=== PATIENT | female | born 1940 | race Caucasian/White ===

== ENCOUNTER 2024-02-07 18:06 | Emergency (ER) | payer MEDICARE, SELFPAY ==
[2024-02-07 18:06] VITALS: BP 172/62; PULSE 60; RESP 17; TEMP 36.1; O2SAT 97; BMI 25.7
--- NOTE | 2024-02-07 18:52 | EDS_ITS ---
HPI History of Present Illness HPI Narrative: 83-year-old female today while just sitting outside developed left foot pain. Lasted about 2 hours she took ibuprofen and it resolved. Denies any fall injury or trauma to her left foot. No prior surgery. Also basically her immediate family and children have COVID. She has a cough. Chief Complaint: Lower Extremity Injury Occured/Mechanism Mechanism/Context: No injury and No blunt trauma Onset/Context/Timing Onset: Today and Hours Context: Gradual Onset Timing: Continuous Current Severity: Gone Maximum Severity: Mild Narrative Narrative: 83-year-old with atraumatic left foot pain. Prior similar symptoms: No Recent Illness/Hospitalization: No PFSH PFSH Medical History Acute bronchitis, unspecified Home Medications ?Medication ?Instructions ?Recorded ?Last Taken ?Type azithromycin 250 mg tablet 250 mg PO QDAY #6 tabs 06/16/23 Unknown Rx Allergy/AdvReac Type Severity Reaction Status Date / Time No Known Allergies Allergy Verified 02/07/24 18:08 Social History Smoking Status: Never smoker ROS ROS ED ROS Narrative Recent cough. Review of Systems ROS Unobtainable: Denies due to encephalopathy Constitutional Constitutional ED: Denies chills, fever(s) or subjective Eyes Eyes: Denies blurry vision ENT ENT ED: Denies ear pain Cardiovascular Cardiovascular: Denies chest pain Respiratory/Chest Respiratory/Chest: Reports cough; Denies dyspnea or dyspnea on exertion Gastrointestinal Gastrointestinal: Denies abdominal pain Genitourinary Genitourinary ED: Denies dysuria or hematuria Musculoskeletal Musculoskeletal: Denies arthralgias Integumentary Denies abscess Neurologic Neurologic: Denies headache(s) Psychiatric Psychiatric: Denies anxiety Endocrine Endocrinology: Denies polydipsia Hematologic/Lymphatic Hematologic/Lymphatic: Denies easy bleeding, easy bruising or lymphadenopathy Allergic/Immunologic Allergic/Immunologic ED: Denies mouth swelling, tongue swelling or urticaria EXAM Physical Exam Narrative Exam Narrative: 83-year-old female no acute distress vital signs stable afebrile. Pulse ox 97% on room air no signs hypoxia. H EENT exam unremarkable. Moist membranes. Neck nontender no lymphadenopathy. Lungs clear to auscultation bilaterally. Mild cough. No rales rhonchi or wheezing. Heart regular rhythm no murmur. Abdomen soft nontender. Moving all 4 extremities. Specifically left foot nontender. No swelling. Normal DP pulse. Normal flexion extension of her left ankle. Achilles tendon is intact. There is absolutely no swelling. No bony deformity. No redness or warmth. She is able to wiggle her toes. Has normal touch sensation. No signs of any injury. No signs of any infection. She is awake and alert. Const Vital Signs: 02/07/24 18:06 Temperature 96.9 F L Temperature Source Temporal Pulse Rate 60 Respiratory Rate 17 Blood Pressure 172/62 H Blood Pressure Mean 98 Pulse Ox 97 Oxygen Delivery Method Room Air Positive well nourished and well developed; Negative for obese, cachectic, contractures or unkempt General Appearance ED: well developed and NAD; Negative for unkempt, cachectic or contractures Nutritional Appearance: Negative for cachectic or obese HEENT Reports moist mucous membranes normocephalic and atraumatic; Negative for trauma Eyes PERRL Neck full ROM and supple Thyroid: Negative for tender Lymph Lymphatic: Negative for other Chest Wall inspection of chest normal and palpation of chest normal Chest: Negative for other Resp normal respiratory effort, no retractions and clear to auscultation bilaterally Resp Narrative: Dry cough. Effort and Inspection: Negative for pain with movement Auscultation: Negative for rales, rhonchi, wheezes or diminished lung sounds Cardio regular rate, regular rhythm, S1 normal heart sound, S2 normal heart sound and no murmurs Rate: Negative for bradycardia or tachycardic Rhythm: Negative for abnormal rhythm Bruits: Negative for other GI non-tender, non-distended and no masses Inspection: Negative for abdominal distention Auscultation: normoactive bowel sounds Palpation: soft; Negative for tender Back/Spine no CVA tenderness General Back: Negative for CVA tenderness or swelling Cervical Spine: Negative for cervical spine tenderness Thoracic Spine / Upper Back: Negative for thoracic spinal tenderness Lumbar Spine / Lower Back: Negative for lumbar spinal tenderness Extremity normal to inspection and full ROM Extremity Narrative: Left foot nontender. No swelling. Normal DP pulse. Able to wiggle her toes. Normal sensation. Normal exam. No signs of infection. General Extremety ED: Negative for cyanosis, edema or weight-bearing difficulty General Extremity: Negative for cyanosis, edema or weight-bearing difficulty Neuro oriented x3, CN's II-XII intact bilaterally, moves all extremities and no sensory deficits noted Sensorium / Orientation: alert, oriented to person, oriented to place and oriented to time; Negative for orientation impaired, confused, lethargic or stuporous Motor Exam: strength 5/5 throughout Psych mental status grossly normal Appearance: Negative for unkempt Speech: No other Mood & Affect: Negative for anxious Skin no wounds Lesions: no lesions Rashes: no rashes Trauma: Negative for abrasion, laceration or puncture MDM MDM MDM Narrative Medical decision making narrative: 83-year-old atraumatic foot pain today. Pain is resolved. Exam normal. Will obtain a left foot x-ray. Multiple family members currently have COVID she has had a cough. I explained to her and her daughter she most likely has COVID. She has a normal lung exam she is in no distress. They are both her not being tested. I explained that we would not change any treatment plan. They are comfortable with that. Repeat exam she is doing well at 7:14 PM. We went over x-ray results. She will be discharged home. History & Record Review Discussion w/independent historian: Patient and Family Radiography Diagnostic Testing: Left foot x-ray, 3 views, interpreted by myself shows chronic degenerative arthritic changes. No fracture or foreign body. No dislocation. Discharge Plan Triage Chief Complaint: Lower Extremity Injury ED Provider: Nima Hughes Dx/Rx/DC Orders Clinical Impression: Acute foot pain, Osteoarthritis, Viral URI Instructions: ED URI, Viral, No Abx (Adult) Prescriptions: No Action azithromycin 250 mg tablet 250 mg PO QDAY Qty: 6 0RF Rx Instructions: 2 tablets today, then 1 tablet daily on days 2 through 5 Primary Care Provider: Terell Johnson Referrals: Terell Johnson MD [Primary Care Provider] - As Needed Activity Restrictions/Additional Instructions: Any further foot pain use Motrin or Tylenol. If is not improving follow-up with either bench lay out technician or your primary care physician. Your x-ray today did not show anything specific. There is arthritis but no specific cause for your pain. Most likely do have COVID. Plenty of fluids and rest. Print Language: [place] Disposition Disposition: Home, Self Care
--- NOTE | 2024-02-07 18:56 | RAD_ITS ---
EXAM: XR LEFT FOOT COMPLETE, 3 OR MORE VIEWS CLINICAL INDICATION: foot TECHNIQUE: Frontal, lateral and oblique views of the left foot. COMPARISON: No relevant prior studies available. FINDINGS: BONES/JOINTS: Degenerative changes of the first second and third tarsometatarsal joint. There is a calcaneal spur. There is an enthesophyte involving the posterior superior calcaneus at the site of insertion of the Achilles tendon. No acute fracture. No subluxation. Normal alignment. No sclerotic or destructive changes observed. SOFT TISSUES: Unremarkable. No soft tissue swelling or gas. No radiopaque foreign body. RAD/Foot min 3 Views IMPRESSION: Degenerative changes of the first second and third tarsometatarsal joint. Electronically Signed: Alex Jacobs MD at 19:23 EDT Reading Location ID and State: [facility] / [place] , Service support ,
== END 2024-02-07 19:43 | disposition home or self-care (01) ==
PROVIDERS: Emergency Provider Emergency Medicine; PCP Family Medicine; Visit Provider Emergency Medicine
DX: J06.9 Acute upper respiratory infection, unspecified (principal); M19.072 Primary osteoarthritis, left ankle and foot; M79.672 Pain in left foot
CPT/HCPCS: 73630; 99282

== ENCOUNTER → 2024-08-12 | Outpatient (CLI) | payer MEDICARE, SELFPAY ==
--- NOTE | 2024-08-12 10:51 | RAD_ITS ---
EXAM: XR CHEST, 2 VIEWS CLINICAL INDICATION: cough TECHNIQUE: Frontal and lateral views of the chest. COMPARISON: No relevant prior studies available. FINDINGS: LUNGS AND PLEURAL SPACES: Inferior lingula airspace disease. Emphysema. No pneumothorax. No effusion. HEART: Unremarkable. Cardiac silhouette not enlarged. MEDIASTINUM: Central airways and mediastinal contour are unremarkable. BONES/JOINTS: Degenerative changes in the spine and acromioclavicular joints. High riding humeral heads are concerning for chronic rotator cuff tears bilaterally. No acute fracture. SOFT TISSUES: Unremarkable. VASCULATURE: Atherosclerotic calcifications of the nonenlarged thoracic aortic arch. RAD/Chest PA and Lateral IMPRESSION: Inferior lingula pneumonia. Follow to resolution. Electronically Signed: Chris Victor MD at 11:46 EST ,
== END | disposition home or self-care (01) ==
PROVIDERS: PCP Family Medicine; Referring Provider Physician Assistant Surgical; Visit Provider Physician Assistant Surgical
DX: R05.9 Cough, unspecified (principal)
CPT/HCPCS: 71046